=== PATIENT | male | born 1945 | race Caucasian/White ===

== ENCOUNTER 2021-03-23 07:42 | Inpatient (IN) | payer OTHER ==
[2021-03-22 13:24] LABS: COVID AG,FIA SOURCE NASOPHARYNGEAL
[2021-03-22 13:28] LABS: BASOPHILS % (AUTO) 1.2 % (0.0-2.0); EOSINOPHILS % (AUTO) 2.6 % (1.0-6.0); HEMATOCRIT 33.3 % (41-53); HEMOGLOBIN 11.3 g/dL (13.5-17.5); LYMPHOCYTES # (AUTO) 1.4 K/uL (1.0-4.8); LYMPHOCYTES % (AUTO) 27.4 % (22.0-44.0); MEAN CORPUSCULAR HEMOGLOBIN 30.2 pg (26.0-34.0); MEAN CORPUSCULAR HGB CONC 33.9 G/dL (31.0-37.0); MEAN CORPUSCULAR VOLUME 89 fL (80-100); MONOCYTES # (AUTO) 0.5 K/uL (0.1-1.0); MONOCYTES % (AUTO) 10.2 % (2.0-9.0); NEUTROPHILS % (AUTO) 58.6 % (40.0-70.0); PLATELET COUNT (AUTO) 138 K/uL (150-450); RED BLOOD CELL COUNT(AUTO) 3.74 MIL/uL (4.50-5.90); RED CELL DISTRIBUTION WIDTH 13.9 % (11.5-14.5)
[2021-03-22 13:42] LABS: ANION GAP 13 mmol/L (8-16); CALCIUM, TOTAL 9.1 mg/dL (8.8-10.5); CARBON DIOXIDE 26 mmol/L (22-29); CHLORIDE 103 mmol/L (98-107); CREATININE 0.76 mg/dL (0.60-1.30); GLUCOSE,RANDOM 147 mg/dL (70-110); POTASSIUM 3.9 mmol/L (3.5-5.1); SODIUM SERUM 142 mmol/L (136-145); UREA NITROGEN, BLOOD 11 mg/dL (7-18)
[2021-03-22 13:43] LABS: GLOMERULAR FILTR. RATE CALC > 60 mL/min (>60)
[2021-03-22 13:47] LABS: ALANINE AMINOTRANSFERASE 82 U/L (12-78); ALKALINE PHOSPHATASE 102 U/L (46-116); ASPARTATE AMINOTRANSFERASE 42 U/L (15-37); BILIRUBIN,TOTAL 0.3 mg/dL (0.1-1.0); TOTAL PROTEIN, SERUM 7.8 g/dL (6.4-8.2)
[2021-03-22 13:49] LABS: PROTHROMBIN TIME 10.4 SEC (9.4-11.6)
[~2021-03-23] VITALS: Ht 170.2 cm; Wt 88.1 kg
[~2021-03-23 07:42] MED LIST: AMLO-258 PO; ASPI-1444 PO; ATOR20TA86 PO; BUPIVACAINE LIPOSOME/PF 1.3%-13.3MG/ML SUSPENSION 20 ML VIAL INJ ONE; FINA-27 PO; FURO20 PO; LISI-894 PO; METF-960 PO; METO-558 PO; POTA8TAB71 PO; RINGERS SOLUTION,LACTATED 1,000 ML IV ONE; SITA25 PO; TAMS-13 PO; TRANEXAMIC ACID 1,000 MG in DEXTROSE 5%-WATER 50 ML IV ONE
[2021-03-23] MEDS ORDERED: RINGERS SOLUTION,LACTATED 1,000 ML IV ONE (08:00)
[2021-03-23] MEDS ORDERED: SODIUM CHLORIDE 0.9% 20 ML ONE (08:46)
[2021-03-23] MEDS ORDERED: SODIUM CL IRRIG SOLN BAG 3,000 ML IRRIG ONE (08:47)
[2021-03-23] MEDS ORDERED: BACITRACIN 50,000 UNITS/VIAL ONE (08:47)
[2021-03-23] MEDS ORDERED: BUPIVACAINE HCL/PF 0.5% 30 ML VIAL ONE (09:12)
[2021-03-23] MEDS ORDERED: SODIUM CHLORIDE 0.9% 50 ML ONE (09:12)
[2021-03-23] MEDS ORDERED: OxyCODONE HCL 5 MG IR TABLET PO PRN (10:30)
[2021-03-23] MEDS ORDERED: ONDANSETRON HCL 4 MG/2 ML VIAL IVP PRN ×2 (10:30→11:30)
[2021-03-23] MEDS ORDERED: HYDROmorphone 2 MG/ML VIAL IVP PRN ×2 (10:30→19:00)
[2021-03-23] MEDS ORDERED: MEPERIDINE-PF 25 MG/ML VIAL IVP PRN (10:30)
[2021-03-23] MEDS ORDERED: FentaNYL CITRATE PF 100 MCG/2 ML VIAL IVP PRN (10:30)
[2021-03-23] MEDS ORDERED: DiphenhydrAMINE HCL 50 MG/ML VIAL IVP PRN (11:30)
[2021-03-23] MEDS ORDERED: MAG HYDROX/AL HYDROX/SIMETH 30 ML SUSP UDCUP PO PRN (11:30)
[2021-03-23] MEDS ORDERED: BENZOCAINE/MENTHOL LOZENGE PO PRN (11:30)
[2021-03-23] MEDS ORDERED: BISACODYL 10 MG RECTAL RECTAL SUPPOSITORY PR PRN (11:30)
[2021-03-23] MEDS ORDERED: SITA50 PO (11:37)
[2021-03-23] MEDS ORDERED: HYDROmorphone 2 MG/ML VIAL ONE (11:37)
[2021-03-23] MEDS ORDERED: OMEP20CA13 PO (11:37)
[2021-03-23] MEDS: HYDROmorphone 2 MG/ML VIAL IVP PRN ×2 (11:41→18:14)
[2021-03-23] MEDS ORDERED: FentaNYL CITRATE PF 100 MCG/2 ML VIAL ONE (11:59)
[2021-03-23] MEDS ORDERED: EPHEDrine SULFATE 50 MG/ML VIAL IM ONE (12:00)
[2021-03-23] MEDS ORDERED: PHENYLEPHRINE HCL 10 MG/ML VIAL IVP ONE (12:00)
[2021-03-23] MEDS ORDERED: FentaNYL CITRATE PF 100 MCG/2 ML VIAL IVP ONE (12:00)
[2021-03-23] MEDS ORDERED: 0.9% SODIUM CHLORIDE 10 ML VIAL IVP ONE (12:00)
[2021-03-23 13:36] VITALS: BP 146/68
[2021-03-23 14:54] VITALS: BP 142/70
[2021-03-23] MEDS: ACETAMINOPHEN 1000 MG/ISO-OSM 100 ML IV SCH ×2 (15:17→21:41)
[2021-03-23] MEDS: CeFAZolin 1 GM/DEXTROSE 50 ML IV SCH ×2 (16:28→23:58)
[2021-03-23] MEDS ORDERED: DEXTROSE 50%-WATER 25 GM/50 ML SYRINGE IVP PRN (17:00)
[2021-03-23] MEDS: INSULIN LISPRO 100 UNITS/ML SQ PRN ×2 (17:01→21:44)
[2021-03-23 18:56] LABS: GLUCOMETER DEV NAME(LOC) 6N.1; GLUCOSE,POINT OF CARE 184 MG/DL (70-110)
[2021-03-23 19:24] VITALS: BP 144/74
[2021-03-23] MEDS: OXYGEN THERAPY IH SCH (20:00)
[2021-03-23] MEDS: CYCLOBENZAPRINE HCL 10 MG TABLET PO PRN (20:47)
[2021-03-23] MEDS: FAMOTIDINE 20 MG TABLET PO SCH (20:47)
[2021-03-23 23:17] VITALS: BP 150/79
[2021-03-23 23:20] LABS: GLUCOMETER DEV NAME(LOC) 6N.1; GLUCOSE,POINT OF CARE 192 MG/DL (70-110)
[2021-03-24] MEDS: ZOLPIDEM TARTRATE 10 MG TABLET PO PRN (00:06)
[2021-03-24] MEDS: ACETAMINOPHEN 1000 MG/ISO-OSM 100 ML IV SCH ×2 (03:21→09:30)
[2021-03-24] MEDS ORDERED: SODIUM CHLORIDE 0.9% 250 ML IV ONE (04:07)
[2021-03-24 04:45] VITALS: BP 151/76
[2021-03-24] MEDS: INSULIN LISPRO 100 UNITS/ML SQ PRN ×4 (04:55→21:15)
[2021-03-24 05:03] LABS: GLUCOMETER DEV NAME(LOC) SDS.; GLUCOSE,POINT OF CARE 168 MG/DL (70-110)
[2021-03-24 06:04] LABS: GLUCOMETER DEV NAME(LOC) 6S.1; GLUCOSE,POINT OF CARE 199 MG/DL (70-110)
[2021-03-24 06:29] LABS: BASOPHILS % (AUTO) 0.5 % (0.0-2.0); EOSINOPHILS % (AUTO) 0.4 % (1.0-6.0); HEMATOCRIT 32.7 % (41-53); MEAN CORPUSCULAR HEMOGLOBIN 29.9 pg (26.0-34.0); MEAN CORPUSCULAR HGB CONC 33.8 G/dL (31.0-37.0); MEAN CORPUSCULAR VOLUME 89 fL (80-100); MONOCYTES # (AUTO) 0.9 K/uL (0.1-1.0); NEUTROPHILS # (AUTO) 6.9 K/uL (1.8-7.7); NEUTROPHILS % (AUTO) 78.1 % (40.0-70.0); PLATELET COUNT (AUTO) 170 K/uL (150-450); RED BLOOD CELL COUNT(AUTO) 3.69 MIL/uL (4.50-5.90); RED CELL DISTRIBUTION WIDTH 13.5 % (11.5-14.5)
[2021-03-24 06:47] LABS: ALANINE AMINOTRANSFERASE 64 U/L (12-78); ALBUMIN 3.5 g/dL (3.4-5.0); ALKALINE PHOSPHATASE 74 U/L (46-116); ANION GAP 12 mmol/L (8-16); ASPARTATE AMINOTRANSFERASE 34 U/L (15-37); BILIRUBIN,TOTAL 0.3 mg/dL (0.1-1.0); CALCIUM, TOTAL 8.3 mg/dL (8.8-10.5); CARBON DIOXIDE 27 mmol/L (22-29); CHLORIDE 101 mmol/L (98-107); CREATININE 0.74 mg/dL (0.60-1.30); GLUCOSE,RANDOM 181 mg/dL (70-110); POTASSIUM 3.3 mmol/L (3.5-5.1); SODIUM SERUM 140 mmol/L (136-145); TOTAL PROTEIN, SERUM 7.5 g/dL (6.4-8.2); UREA NITROGEN, BLOOD 7 mg/dL (7-18)
[2021-03-24 06:49] LABS: GLOMERULAR FILTR. RATE CALC > 60 mL/min (>60)
[2021-03-24] MEDS: OXYGEN THERAPY IH SCH ×2 (08:00→20:00)
[2021-03-24 08:18] VITALS: BP 155/78
[2021-03-24] MEDS: ASPIRIN 81 MG DR TABLET PO SCH (08:27)
[2021-03-24] MEDS: METOPROLOL SUCCINATE 50 MG ER TABLET PO SCH (08:27)
[2021-03-24] MEDS: ATORVASTATIN CALCIUM 20 MG TABLET PO SCH (08:27)
[2021-03-24] MEDS: LISINOPRIL 20 MG TABLET PO SCH (08:27)
[2021-03-24] MEDS: SitaGLIPtin PHOSPHATE 50 MG TABLET PO SCH (08:27)
[2021-03-24] MEDS: AmLODIPine BESYLATE 10 MG TABLET PO SCH (08:27)
[2021-03-24] MEDS: TAMSULOSIN HCL 0.4 MG CAPSULE PO SCH ×2 (08:27→20:54)
[2021-03-24] MEDS: FINASTERIDE 5 MG TABLET PO SCH (08:27)
[2021-03-24] MEDS: DOCUSATE SODIUM 100 MG CAPSULE PO SCH ×2 (08:27→20:54)
[2021-03-24] MEDS: RIVAROXABAN 10 MG TABLET PO SCH (08:28)
[2021-03-24] MEDS: FUROSEMIDE 20 MG TABLET PO SCH (08:28)
[2021-03-24] MEDS: OMEPRAZOLE 20 MG CAPSULE PO SCH (08:28)
[2021-03-24] MEDS: POTASSIUM CHLORIDE 8 MEQ ER TABLET PO SCH (08:28)
[2021-03-24] MEDS: FAMOTIDINE 20 MG TABLET PO SCH ×2 (08:28→20:53)
[2021-03-24 12:02] VITALS: BP 157/79
[2021-03-24 12:52] LABS: GLUCOMETER DEV NAME(LOC) 6N.1; GLUCOSE,POINT OF CARE 196 MG/DL (70-110)
[2021-03-24] MEDS ORDERED: OxyCODONE HCL/ACETAMINOPHEN 10-325 MG TABLET PO PRN ×2 (13:00→15:30)
[2021-03-24] MEDS: OxyCODONE HCL/ACETAMINOPHEN 10-325 MG TABLET PO PRN ×2 (15:24→20:54)
[2021-03-24 15:59] VITALS: BP 149/73
[2021-03-24] MEDS: CYCLOBENZAPRINE HCL 10 MG TABLET PO PRN ×2 (17:58→20:53)
[2021-03-24 20:02] LABS: GLUCOMETER DEV NAME(LOC) 6N.1; GLUCOSE,POINT OF CARE 188 MG/DL (70-110)
[2021-03-24 21:05] VITALS: BP 125/55
[2021-03-24 23:44] LABS: GLUCOMETER DEV NAME(LOC) 6N.1; GLUCOSE,POINT OF CARE 179 MG/DL (70-110)
[2021-03-25] MEDS: INSULIN LISPRO 100 UNITS/ML SQ PRN ×4 (04:42→21:10)
[2021-03-25 04:48] VITALS: BP 128/67
[2021-03-25 06:38] LABS: BASOPHILS % (AUTO) 0.6 % (0.0-2.0); EOSINOPHILS % (AUTO) 2.7 % (1.0-6.0); HEMATOCRIT 29.6 % (41-53); HEMOGLOBIN 10.1 g/dL (13.5-17.5); LYMPHOCYTES # (AUTO) 1.3 K/uL (1.0-4.8); LYMPHOCYTES % (AUTO) 15.4 % (22.0-44.0); MEAN CORPUSCULAR HEMOGLOBIN 30.2 pg (26.0-34.0); MEAN CORPUSCULAR HGB CONC 34.2 G/dL (31.0-37.0); MEAN CORPUSCULAR VOLUME 88 fL (80-100); MONOCYTES # (AUTO) 0.9 K/uL (0.1-1.0); MONOCYTES % (AUTO) 10.8 % (2.0-9.0); NEUTROPHILS # (AUTO) 6.2 K/uL (1.8-7.7); NEUTROPHILS % (AUTO) 70.5 % (40.0-70.0); PLATELET COUNT (AUTO) 178 K/uL (150-450); RED BLOOD CELL COUNT(AUTO) 3.36 MIL/uL (4.50-5.90)
[2021-03-25 06:44] LABS: GLUCOMETER DEV NAME(LOC) 6N.1; GLUCOSE,POINT OF CARE 177 MG/DL (70-110)
[2021-03-25 06:57] LABS: ALANINE AMINOTRANSFERASE 45 U/L (12-78); ALBUMIN 3.3 g/dL (3.4-5.0); ALKALINE PHOSPHATASE 70 U/L (46-116); ANION GAP 10 mmol/L (8-16); ASPARTATE AMINOTRANSFERASE 18 U/L (15-37); BILIRUBIN,TOTAL 0.4 mg/dL (0.1-1.0); CALCIUM, TOTAL 8.5 mg/dL (8.8-10.5); CARBON DIOXIDE 28 mmol/L (22-29); CHLORIDE 101 mmol/L (98-107); CREATININE 1.03 mg/dL (0.60-1.30); GLUCOSE,RANDOM 162 mg/dL (70-110); POTASSIUM 3.3 mmol/L (3.5-5.1); SODIUM SERUM 139 mmol/L (136-145); TOTAL PROTEIN, SERUM 7.3 g/dL (6.4-8.2); UREA NITROGEN, BLOOD 13 mg/dL (7-18)
[2021-03-25 06:59] LABS: GLOMERULAR FILTR. RATE CALC > 60 mL/min (>60)
[2021-03-25] MEDS: OXYGEN THERAPY IH SCH ×2 (08:00→20:00)
[2021-03-25 08:19] VITALS: BP 144/72
[2021-03-25] MEDS: TAMSULOSIN HCL 0.4 MG CAPSULE PO SCH ×2 (09:11→21:06)
[2021-03-25] MEDS: ATORVASTATIN CALCIUM 20 MG TABLET PO SCH (09:11)
[2021-03-25] MEDS: OMEPRAZOLE 20 MG CAPSULE PO SCH (09:11)
[2021-03-25] MEDS: SitaGLIPtin PHOSPHATE 50 MG TABLET PO SCH (09:11)
[2021-03-25] MEDS: ASPIRIN 81 MG DR TABLET PO SCH (09:11)
[2021-03-25] MEDS: AmLODIPine BESYLATE 10 MG TABLET PO SCH (09:11)
[2021-03-25] MEDS: FAMOTIDINE 20 MG TABLET PO SCH ×2 (09:11→21:05)
[2021-03-25] MEDS: POTASSIUM CHLORIDE 8 MEQ ER TABLET PO SCH (09:11)
[2021-03-25] MEDS: FUROSEMIDE 20 MG TABLET PO SCH (09:11)
[2021-03-25] MEDS: FINASTERIDE 5 MG TABLET PO SCH (09:11)
[2021-03-25] MEDS: RIVAROXABAN 10 MG TABLET PO SCH (09:11)
[2021-03-25] MEDS: DOCUSATE SODIUM 100 MG CAPSULE PO SCH ×2 (09:11→21:05)
[2021-03-25] MEDS: LISINOPRIL 20 MG TABLET PO SCH (09:12)
[2021-03-25] MEDS: METOPROLOL SUCCINATE 50 MG ER TABLET PO SCH (09:12)
[2021-03-25] MEDS: OxyCODONE HCL/ACETAMINOPHEN 10-325 MG TABLET PO PRN ×2 (09:38→21:06)
[2021-03-25 12:02] VITALS: BP 105/61
[2021-03-25] MEDS ORDERED: DiphenhydrAMINE HCL 25 MG CAPSULE PO PRN (14:45)
[2021-03-25 15:17] VITALS: BP 122/68
[2021-03-25 15:45] LABS: GLUCOMETER DEV NAME(LOC) 6S.1; GLUCOSE,POINT OF CARE 186 MG/DL (70-110)
[2021-03-25] MEDS ORDERED: PERCT PO (17:42)
[2021-03-25] MEDS ORDERED: RIVA10TA PO (17:42)
[2021-03-25 20:28] VITALS: BP 131/56
[2021-03-25] MEDS: CYCLOBENZAPRINE HCL 10 MG TABLET PO PRN (21:05)
[2021-03-25] MEDS: ZOLPIDEM TARTRATE 10 MG TABLET PO PRN (21:14)
[2021-03-25 22:35] LABS: GLUCOMETER DEV NAME(LOC) 6N.1; GLUCOSE,POINT OF CARE 161 MG/DL (70-110)
[2021-03-25 22:39] LABS: GLUCOMETER DEV NAME(LOC) 6S.1; GLUCOSE,POINT OF CARE 144 MG/DL (70-110)
[2021-03-26 04:08] VITALS: BP 123/62
[2021-03-26] MEDS: INSULIN LISPRO 100 UNITS/ML SQ PRN ×3 (05:24→17:32)
[2021-03-26] MEDS: OxyCODONE HCL/ACETAMINOPHEN 10-325 MG TABLET PO PRN (05:31)
[2021-03-26 06:01] LABS: GLUCOMETER DEV NAME(LOC) 6N.1; GLUCOSE,POINT OF CARE 169 MG/DL (70-110)
[2021-03-26 08:00] LABS: BASOPHILS % (AUTO) 0.7 % (0.0-2.0); EOSINOPHILS % (AUTO) 4.5 % (1.0-6.0); HEMOGLOBIN 8.9 g/dL (13.5-17.5); LYMPHOCYTES # (AUTO) 1.3 K/uL (1.0-4.8); LYMPHOCYTES % (AUTO) 17.5 % (22.0-44.0); MEAN CORPUSCULAR HEMOGLOBIN 30.3 pg (26.0-34.0); MEAN CORPUSCULAR HGB CONC 34.1 G/dL (31.0-37.0); MEAN CORPUSCULAR VOLUME 89 fL (80-100); MONOCYTES # (AUTO) 0.7 K/uL (0.1-1.0); NEUTROPHILS # (AUTO) 4.9 K/uL (1.8-7.7); NEUTROPHILS % (AUTO) 67.3 % (40.0-70.0); PLATELET COUNT (AUTO) 149 K/uL (150-450); RED BLOOD CELL COUNT(AUTO) 2.93 MIL/uL (4.50-5.90); RED CELL DISTRIBUTION WIDTH 13.9 % (11.5-14.5)
[2021-03-26] MEDS: OXYGEN THERAPY IH SCH (08:00)
[2021-03-26] MEDS: LISINOPRIL 20 MG TABLET PO SCH (08:12)
[2021-03-26] MEDS: DOCUSATE SODIUM 100 MG CAPSULE PO SCH (08:12)
[2021-03-26] MEDS: RIVAROXABAN 10 MG TABLET PO SCH (08:12)
[2021-03-26] MEDS: ASPIRIN 81 MG DR TABLET PO SCH (08:12)
[2021-03-26] MEDS: POTASSIUM CHLORIDE 8 MEQ ER TABLET PO SCH (08:12)
[2021-03-26] MEDS: FINASTERIDE 5 MG TABLET PO SCH (08:13)
[2021-03-26] MEDS: FAMOTIDINE 20 MG TABLET PO SCH (08:13)
[2021-03-26] MEDS: METOPROLOL SUCCINATE 50 MG ER TABLET PO SCH (08:13)
[2021-03-26] MEDS: ATORVASTATIN CALCIUM 20 MG TABLET PO SCH (08:13)
[2021-03-26] MEDS: OMEPRAZOLE 20 MG CAPSULE PO SCH (08:13)
[2021-03-26] MEDS: FUROSEMIDE 20 MG TABLET PO SCH (08:13)
[2021-03-26] MEDS: AmLODIPine BESYLATE 10 MG TABLET PO SCH (08:13)
[2021-03-26] MEDS: SitaGLIPtin PHOSPHATE 50 MG TABLET PO SCH (08:14)
[2021-03-26] MEDS: TAMSULOSIN HCL 0.4 MG CAPSULE PO SCH (08:14)
[2021-03-26 08:15] VITALS: BP 133/57
[2021-03-26 08:20] LABS: ALANINE AMINOTRANSFERASE 39 U/L (12-78); ALKALINE PHOSPHATASE 70 U/L (46-116); ANION GAP 12 mmol/L (8-16); ASPARTATE AMINOTRANSFERASE 25 U/L (15-37); BILIRUBIN,TOTAL 0.3 mg/dL (0.1-1.0); CALCIUM, TOTAL 8.2 mg/dL (8.8-10.5); CARBON DIOXIDE 26 mmol/L (22-29); CHLORIDE 101 mmol/L (98-107); CREATININE 1.06 mg/dL (0.60-1.30); GLUCOSE,RANDOM 152 mg/dL (70-110); POTASSIUM 3.1 mmol/L (3.5-5.1); SODIUM SERUM 139 mmol/L (136-145); UREA NITROGEN, BLOOD 17 mg/dL (7-18)
[2021-03-26 08:24] LABS: GLOMERULAR FILTR. RATE CALC > 60 mL/min (>60)
[2021-03-26] MEDS ORDERED: POTASSIUM CHLORIDE 20 MEQ ER TABLET PO ONE ×2 (13:00→13:15)
[2021-03-26 13:11] LABS: GLUCOMETER DEV NAME(LOC) 6S.1; GLUCOSE,POINT OF CARE 151 MG/DL (70-110)
[2021-03-26 14:00] VITALS: BP 130/63
[2021-03-26] MEDS ORDERED: SENN-237 PO (15:45)
[2021-03-26 20:50] LABS: GLUCOMETER DEV NAME(LOC) 6S.1; GLUCOSE,POINT OF CARE 170 MG/DL (70-110)
== END 2021-03-26 18:40 | disposition home health service (06) | DRG 470 ==
LOC: 6N 07:42
PROVIDERS: ADMIT Orthopaedic Surgery; ATTEND Orthopaedic Surgery
PROC: 0SRC0J9 Replacement of Right Knee Joint with Synthetic Substitute, Cemented, Open Approach (ICD-10-PCS; principal; 2021-03-23 10:00)
DX: M17.11 Unilateral primary osteoarthritis, right knee (principal); E11.9 Type 2 diabetes mellitus without complications; I10 Essential (primary) hypertension; N40.0 Benign prostatic hyperplasia without lower urinary tract symptoms; E87.6 Hypokalemia; E78.5 Hyperlipidemia, unspecified; Z98.1 Arthrodesis status; Z90.49 Acquired absence of other specified parts of digestive tract; Z20.822 Contact with and (suspected) exposure to COVID-19
CPT/HCPCS: 80053; 82962; 83036; 85025; 85610; 85730; 87081; 88300; 93005; 97110; 97162; 97166; 97530; 97535; C9290; G0238; J0131; J0690; J1170; J2370; J3010; J3490; J7050; J7060; J7120